=== PATIENT | female | born 1980 | race Hispanic/Latino ===

== ENCOUNTER 2018-01-07 00:46 | Emergency (ER) | payer OTHER ==
--- NOTE | 2018-01-07 01:57 | ED PDOC ---
HPI: Abdomen Time Seen by Provider: 01/07/18 00:57 Chief Complaint (Nursing): GI Problem Chief Complaint (Provider): vomiting History Per: Patient History/Exam Limitations: no limitations Onset/Duration Of Symptoms: Hrs (today) Additional Complaint(s): Dinesh Padgett, a 37 year old female with no significant past medical history, presents to the ED with vomiting onset tonight. Patient states that she felt unwell this evening before dinner. She reports nausea and a few episodes on nonbloody, nonbilious vomiting. Patient denies abdominal pain, abnormal stool, fever or urinary symptoms. No further medical complaints. Past Medical History Reviewed: Historical Data, Nursing Documentation, Vital Signs Vital Signs: Last Vital Signs Temp 97.8 F 01/07/18 00:52 Pulse 69 01/07/18 00:52 Resp 16 01/07/18 00:52 BP 122/89 01/07/18 00:52 Pulse Ox 97 01/07/18 00:52 - Medical History PMH: No Chronic Diseases - Family History Family History: States: Unknown Family Hx - Home Medications Home Medications: Ambulatory Orders Medication Instructions Recorded Ondansetron [Zofran] 4 mg PO Q8H #12 tab 01/07/18 - Allergies Allergies/Adverse Reactions: Allergies Allergy/AdvReac Type Severity Reaction Status Date / Time No Known Allergies Allergy Verified 01/07/18 00:56 Review of Systems ROS Statement: Except As Marked, All Systems Reviewed And Found Negative Constitutional: Negative for: Fever Gastrointestinal: Positive for: Nausea, Vomiting. Negative for: Abdominal Pain, Diarrhea, Constipation, Melena, Hematochezia, Hematemesis Genitourinary Female: Negative for: Dysuria, Frequency, Incontinence, Hematuria Physical Exam - Reviewed Nursing Documentation Reviewed: Yes Vital Signs Reviewed: Yes - Physical Exam Appears: Positive for: Well, Non-toxic, No Acute Distress Head Exam: Positive for: ATRAUMATIC, NORMAL INSPECTION, NORMOCEPHALIC Skin: Positive for: Normal Color, Warm, DRY Eye Exam: Positive for: EOMI, Normal appearance, PERRL ENT: Positive for: Normal ENT Inspection Neck: Positive for: Normal, Painless ROM Cardiovascular/Chest: Positive for: Regular Rate, Rhythm Respiratory: Positive for: CNT, Normal Breath Sounds Gastrointestinal/Abdominal: Positive for: Normal Exam, Soft Back: Positive for: Normal Inspection Extremity: Positive for: Normal ROM Neurologic/Psych: Positive for: Alert, Oriented - ECG O2 Sat by Pulse Oximetry: 97 (RA) Pulse Ox Interpretation: Normal Medical Decision Making Medical Decision Making: Time: 00:57 A/P: nausea, vomiting, healthy female very well appearing, nontoxic, likely GI virus, will provide symptom relief Initial Plan: --Zofran 8 mg PO --Urine 3AM Patient tolerating PO, feeling better, appearing in well condition. Will d/c home. Advised to followup with PMD. Scribe Attestation: Documented by Vale Shelton, acting as a scribe for Rudolph Dunaway MD. Provider Scribe Attestation: All medical record entries made by the Scribe were at my direction and personally dictated by me. I have reviewed the chart and agree that the record accurately reflects my personal performance of the history, physical exam, medical decision making, and the department course for this patient. I have also personally directed, reviewed, and agree with the discharge instructions and disposition. Disposition - Clinical Impression Clinical Impression: Vomiting - Disposition Referrals: [facility] [Outside] Disposition: Routine/Home Disposition Time: 03:00 Condition: STABLE Prescriptions: Ondansetron [Zofran] 4 mg PO Q8H #12 tab Instructions: Nausea and Vomiting, Adult (DC) Forms: [employer] (Croatian)
[2018-01-07 04:03] VITALS: BP 100/71; PULSE 88; RESP 22; TEMP 97.7; O2SAT 99
== END 2018-01-07 03:15 | disposition home or self-care (01) ==
LOC: H.ER 00:46
DX: R11.10 Vomiting, unspecified (principal)